=== PATIENT | male | born 1970 | race Caucasian/White ===

== ENCOUNTER 2025-08-30 11:37 | Outpatient (REF) | payer OTHER, SELFPAY ==
--- NOTE | ~2025-08-30 | XR_ITS ---
Exam: X-ray, bilateral knees.XR KNEE 3 VIEWS BILATERAL TECHNIQUE: Three views lower extremity joint, bilateral knees INDICATION: Sanjay knee pain COMPARISON: None available. FINDINGS: RIGHT KNEE: There is moderate narrowing of the medial joint space. There is faint amorphous calcific density visible in the medial and lateral joint lines. There are small tricompartmental marginal osteophytes, most pronounced along the medial patellofemoral joint. There is no joint effusion. LEFT KNEE: There is moderate narrowing of the medial joint space. There is faint amorphous calcific density visible in the lateral meniscus. There is also linear chondrocalcinosis involving patellar cartilage. There is no joint effusion. There are tricompartmental marginal osteophytes, most advanced in the patellofemoral joint. 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 Electronically signed by: Jim Brown MD 08/30/2025 12:09 PM EDT
== END 2025-08-30 11:38 | disposition home or self-care (01) ==
LOC: HO.HOSX 11:37
PROVIDERS: PCP Physician Assistant
DX: M17.0 Bilateral primary osteoarthritis of knee (principal)
CPT/HCPCS: 73562

== ENCOUNTER 2025-08-30 11:37 | Outpatient (AMB) | payer OTHER, SELFPAY ==
--- OUTSIDE RECORDS SUMMARY | 2025-03-12 09:30 | XMS_ITS ---
Author Organization [facility] [place] Address [address] [facility] [address] [place] [address] Care Team Providers Care Bead Worker Sewing Name Role Phone Rafy Courtney Unavailable [phone] REASON FOR VISIT New Patient Exam Encounters Encounter Location Date Provider Diagnosis [facility], [address] [address] 03/12/2025 Rafy Courtney Plan Of Treatment No Information Progress Notes * Rayray MOREJONDOB:[birth year] (55 yo Other)Acc No.[id number]:03/12/2025 Progress Notes Patient: Rayray Bowling Provider: Leon VYAS :1970 A ge:54 Y S ex:Unknown Date:03/12/2025 Phone: Address:[address] [place] [address] [place], [place] [address] [facility] [id number] Subjective: * Chief Complaints: * N ew Patient Exam * Ocular Surgical History: Objective: Vision Examination: * Electronic signature of Dhiraj Courtney PA-C on 08/30/2025 at 03:01 PM EDT Sign off status: Pending * Provider: Leon VYAS Date: 0 03/12/2025 Generated for Idalia molina/Aubrey/Orlinitting on: 1 03:01 PM EDT
--- OUTSIDE RECORDS SUMMARY | 2025-05-21 05:30 | XMS_ITS ---
Author Organization [facility] [place] Address [address] [facility] [address] [place] [address] Care Team Providers Care Noc Technician Name Role Phone Hoa Duron Unavailable [phone] Allergies No Known Allergies REASON FOR VISIT 1 month f/u-, right knee pain- did xray already-possible arthoartritis?, BP 2nd time right arm 165/96 Social History Section Notes: denies smoking alcohol-socially nynsggig-6-5 cups coffee daily Vital Signs Temperature 97.6 [...] 05/21/2025 Encounters Encounter Location Date Provider Diagnosis [facility], [address] [address] 05/21/2025 Hoa Duron Plan Of Treatment No Information History and Physical Notes * HPI (History [...] * Rayray MOREJONDOB:[birth year] (55 yo Other)Acc No.[id number]:05/21/2025 Progress Notes Patient: Rayray Bowling Provider: Nenita Duron :1970 A ge:55 Y S ex:Unknown Date:05/21/2025 Phone: Address:[address] [place] [address], [place], [phone] Subjective: * Chief Complaints: * 1 [...] providers Medical History Verified * Surgical History: infant-plorexdinosis hernia Surgical History verified. * Hospitalization/Major Diagno stic Procedure: Denies Past Hospitalization. * Family History: health care proxy-denies. * Social History: d enies smoking alcohol-socially komngztb-3-2 cups coffee daily. * Medications: N one * Allergies: N .K.D.A.yesAllergies Verified. Objective: * Vitals: B P:169/76mm Hg, HR:91/min, RR:20/min, Temp:97.6F, Oxygen sat %:97%, Ht: 67 in, Wt:195lbs, BMI:30.54Index, Wt-k.45 kg, Ht-cm: 170.18 cm, Body Surface Area: 2.04. Billing Information: * Procedure Codes: * Electronic signature of Dima Duron on 08/30/2025 at 03:01 PM EDT Sign off status: Pending * Provider: Nenita Duron Date: 0 05/21/2025 Generated for Idalia molina/Aubrey/Manny on: 1 03:01 PM EDT
--- NOTE | 2025-08-30 11:50 | MHC.OFFVIS ---
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 Per referring provider from [facility], patient complains of pain on the medial aspect of the right knee. He has tried using a soft brace, Ibuprofen PRN, and and Glucosamine QD without relief. Patient states his left knee has improved with the use of Glucosamine however, he continues having trouble with his right knee. He complains of clicking, locking, and giving away. He describes his pain as a grinding sensation. Patient is a retired [employer] currently working part-time at a [employer]. Allergies No Known Allergies Allergy (Verified 08/30/25 11:57) HPI HPI EMBEDDED FIRMWARE ENGINEER- Sanjay knee OA / ok per AA: Details: Rayray is a 55 year old male who presents today as a New Patient for evaluation of Bilateral Knee Pain. Per referring provider from [facility], patient complains of pain on the medial aspect of the right knee. He has tried using a soft brace, Ibuprofen PRN, and and Glucosamine QD without relief. Patient states his left knee has improved with the use of Glucosamine however, he continues having trouble with his right knee. He complains of clicking, locking, and giving away. He describes his pain as a grinding sensation. Patient is a retired [employer] currently working part-time at a [employer]. [facility] Medical History (Updated 09/14/25 @ 08:33 by ASAEL Sanchez) Essential hypertension, benign Social History (Updated 08/30/25 @ 12:01 by ROYN Archuleta) Alcohol intake: never Patient Tobacco Use Status: Never used Tobacco Current occupational status: employed Current occupation: retired [employer] currently working part-time at a [employer] Physical Exam Vital Signs: BMI result Body Mass Index 31.3 Extrem Other: Patient's bilateral knees normal to inspection No erythema, ecchymosis, edema noted No lacerations, abrasions, open areas No evidence of infection Patient reports mild tenderness to palpation of the medial joint line of bilateral knees No tenderness to palpation of lateral joint line, quad tendon, patellar tendon, or elsewhere on the bilateral knees Patient is able to flex the knee to approximately 100 degrees and extend fully and without difficulty Negative Tran's bilaterally No ligamentous laxity with varus and valgus testing noted Distal sensation intact Capillary refill brisk Results Reviewed Results Reviewed: X-rays obtained in the office today and independently reviewed by me, Amarjit Colon PA-C, demonstrate bilateral knee osteoarthritis. Assessment & Plan Assessment & Plan (1) Bilateral primary osteoarthritis of knee: Code(s): M17.0 - Bilateral primary osteoarthritis of knee Category: Medical Plan 1. Bilateral knee osteoarthritis Patient is educated about this condition Patient is educated about the typical recovery course At this time, patient states he is interested in injections, however he inquires about cost and the need for prior authorization for these injections Therefore, we will reach out to the patient's insurance company, determine what his cost we will be, and book him an appointment whenever he would like to pursue injections Patient understands this is amenable to this plan Orders: Orders XR Knee Sanjay 3V 08/30/25 M25.569 - Pain in unspecified knee Coding Level of Care Code New Pt Level 3 (47212) Diagnoses Bilateral primary osteoarthritis of knee M17.0
[2025-08-30 11:55] VITALS: BMI 31.3
--- OUTSIDE RECORDS SUMMARY | 2025-08-30 15:01 | XMS_ITS | Patient Health Record ---
Author Organization [facility] [place] Address [address] [facility] [address] [place] [address] Care Team Providers Care Bridge Worker Apprentice Name Role Phone KatherineRafy domingo Unavailable [phone] Hoa Duron Unavailable [phone] Allergies No Known Allergies Reason For Referral Reason Pt is a 55yo male w/ HTN and chronic B/L knee pain, R > L who would benefit from an Orthopedic referral as his knee pain has not improved. Please note the b/l knee x-ray below. Please evaluate and treat as indicated. Thank you for - 03/12/2025: B/L Knee x-rays note the following: Osteoarthritis B/L. Primary medial compartment of the femoral tibia joint space B/L resulting in mild varus deformity of both knees. There is also vacuum phenomenon in the medial menisci B/L indicative of degenerative changes. Diagnosis 1 Pain in right knee ( M25.561) Diagnosis 2 Pain in left knee (M 25.562) Referral Organization [facility] Referring Provider First Name Hoa Referring Provider Last Name Domi Referring Provider Special[facility] Referred Provider Specialty Orthopedic S urgery General Notes Hoa Duron 08/16 08:43:04 AM > Pt would prefer to go to [facility] Referral Priority Routine Medications Medication SIG (Take, Route, Frequency, Duration) Notes Start Date End Date Status amLODIPine Besylate 5 MG Tablet 1 tablet Orally Once a day; Duration: 90 days 08/09/2025 Active Glucosamine 500 MG Capsule 1 capsule wit h meals Orally daily 08/13/2025 Active Social History Section Notes: denies smoking alcohol-socially ujyarvxo-8-5 cups coffee daily denies smoking alcohol-socially vbnmrkxf-4-2 cups coffee daily Problems Problem Type SNOMED Code ICD Code Onset Dates Problem Status W/U Status Risk Notes Problem Pain of right knee region (finding) (336348518627044 ) Pain in right knee (M25.561) Active confirmed Problem Benign essential hypertension (5312943) Benign essential hypertension (I10) Active confirmed Problem Acute pain of left knee (M25.562) Active confirmed Vital Signs Heart Rate 85 /min 08/09/2025 Temperature 97.6 degrees Fahrenheit 05/21/2025 Respiratory Rate 19 /min 08/09/2025 Height-cm 170.18 cm 08/09/2025 Oximetry 97 % 08/09/2025 Blood pressure diastolic 90 mm Hg 08/09/2025 Weight-kg 90.27 kg 08/09/2025 Height 67 in 08/09/2025 Blood pressure systolic 155 mm Hg 08/09/2025 Weight 199 lbs 08/09/2025 BMI 31.16 kg/m2 08/09/2025 Encounters Encounter Location Date Provider Diagnosis [facility], [address] [address] 03/12/2025 Rafy Courtney [facility], [address] [place] [address] 05/21/2025 Hoa Domi [facility], [address] [address] 08/30/2025 Hoa Sagan [facility], [address] [address] 08/09/2025 Hoa Sagan Pain in right knee M25.561 ; Acute pain of left knee M25.562 and Benign essential hypertension I10 Assessments Encounter Date Diagnosis (ICD Code) Assessment Notes Treatment Notes Treatment Clinical Notes Section Notes 08/09/2025 Pain in right knee (ICD-10 - M25.561) Pt notes B/L knee pain, chronic, R > L. X-rays completed. -Continue Ibuprofen and Acetaminophen PRN -Orthopedic Referral, Pt would like to go to [facility] -F/up s/p Ortho appt 08/09/2025 Acute pain of left knee (ICD-10 - M25.562) Please note the above Right knee PLAN. 08/09/2025 Benign essential hypertension (ICD-10 - I10) BP noted to be increased, even w/ a manual BP. Pt has HTN. PLAN: -Start Amlodipine 5mg daily, increase if indicated -Pt encouraged to purchase a BP monitor -Pt encouraged to keep track of his BP results -Monitor BP at in-office appts 08/09/2025 Other -Continue to monitor all of the above Plan Of Treatment No Information Insurance Providers Payer Name Payer Address Payer Phone Subscriber Number Group Number Insured Name Patient Relationship to Insured Coverage Start Date Coverage End Date [facility] Insurance [address] [employer] Daily [id number] Rayray Armstrong Self - patient is the insured Medical (General) History Medical History History ICD Code B/L knee pain, chronic; elevated BP Surgical History Surgery Date(Month/Year) infant-plorexdinosis hernia
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
== END 2025-08-30 12:59 | disposition home or self-care (01) ==
LOC: HO.HOS 11:38
PROVIDERS: PCP Physician Assistant
DX: M17.0 Bilateral primary osteoarthritis of knee (principal)
CPT/HCPCS: 99203

== ENCOUNTER → 2025-08-30 11:48 | Outpatient (BNV) | payer OTHER, SELFPAY | PROVIDERS: PCP Physician Assistant; Visit Provider Radiology Diagnostic Radiology | DX: M17.0 Bilateral primary osteoarthritis of knee (principal) | CPT/HCPCS: 73562 ==

== ENCOUNTER 2025-09-14 13:45 | Outpatient (AMB) | payer OTHER, SELFPAY ==
--- OUTSIDE RECORDS SUMMARY | 2025-03-12 08:30 | XMS_ITS ---
Author Organization [facility] [place] Address [address] [facility] [address] [place] [address] Care Team Providers Care Forest Fire Control Officer Name Role Phone Rafy Courtney Unavailable [phone] REASON FOR VISIT New Patient Exam Encounters Encounter Location Date Provider Diagnosis [facility], [address] [place] [address] 03/12/2025 Rafy Courtney Plan Of Treatment Next Appt Details Provider Name:Hoa Duron, 09/24/2025 03:45:00 PM, [address] [facility], [address], [place], [address], [phone] Progress Notes * Rayray MOREJONDOB:[birth year] (55 yo Other)Acc No.[id number]:03/12/2025 Progress Notes Patient: Rayray Bowling Provider: Leon VYAS :1970 A ge:54 Y S ex:Unknown Date:03/12/2025 Phone: Address:[address] [place], [place] [id number] Subjective: * Chief Complaints: * N ew Patient Exam * Ocular Surgical History: Objective: Vision Examination: * Electronic signature of Dhiraj Courtney PA-C on 09/14/2025 at 03:22 PM EST Sign off status: Pending * Provider: Leon VYAS Date: 0 03/12/2025 Generated for Printi ng/Faxing/eTransmitting on: 1 11/14/2024 03:22 PM EST
--- OUTSIDE RECORDS SUMMARY | 2025-05-21 04:30 | XMS_ITS ---
Author Organization [facility] [place] Address [address] [facility] [address] [place] [address] Care Team Providers Care Cardiac Catheterization Technologist Name Role Phone Hoa Duron Unavailable [phone] Allergies No Known Allergies REASON FOR VISIT 1 month f/u-, right knee pain- did xray already-possible arthoartritis?, BP 2nd time right arm 165/96 Social History Section Notes: denies smoking alcohol-socially iogbrvps-3-2 cups coffee daily Vital Signs Temperature 97.6 degrees Fahrenheit 05/21/20 25 Blood pressure systolic 169 mm Hg 05/21/20 25 Blood pressure diastolic 76 mm Hg 025 Heart Rate 91 /min 05/21/2025 Respiratory Rate 20 /min 05/21/2025 Height 67 in 05/21/2025 Weight 195 lbs 05/21/2025 BMI 30.54 kg/m2 05/21/2025 Oximetry 97 % 05/21/2025 Height-cm 170.18 cm 05/21/2025 Weight-kg 88.45 kg 05/21/2025 Encounters Encounter Location Date Provider Diagnosis [facility], [address] [place] [address] 05/21/2025 Hoa Duron Plan Of Treatment Next Appt Details Provider Name:Hoa Duron, 09/24/2025 03:45:00 PM, [address] [facility], [address], [place], [address], [phone] History and Physical Notes * HPI (History of Present Illness) Category Sub-Category Detail Notes Category Not es Depression screening PHQ-9 Little inte rest or pleasure in doing things: Not at all Feeling down, depressed, or hopeless: No t at all Trouble falling or staying asleep, or sl eeping too much: Not at all Feeling tired or having little energy: N ot at all Poor appetite or overeating: Not at all Feeling bad about yourself o r that you are a failure, or have let yourself or your family down: Not at all Trouble concentrating on thi ngs, such as reading the newspaper or watching television: Not at all Moving or speaking so slowly that other people could have noticed; or the opposite, being so fidgety or restless that you have been moving around a lot more than usual: Not at all Thoughts that you would be b familia off or of hurting yourself in some way: Not at all Total Score: 0 Progress Notes * Rayray MOREJONDOB:[birth year] (55 yo Other)Acc No.[id number]:05/21/2025 Progress Notes Patient: Rayray Bowling Provider: Nenita Duron :1970 A ge:55 Y S ex:Unknown Date:05/21/2025 Phone: Address:[address] [place] [address], [phone] Subjective: * Chief Complaints: * 1 month f/u-Right knee pain- did xray already-possible arthoartritis?BP 2nd time right arm 165/96 * HPI: D epression screening: PHQ-9 L ittle interest or pleasure in doing things N ot at all, F eeling down, depressed, or hopeless N ot at all, T rouble falling or staying asleep, or sleeping too much N ot at all, F eeling tired or having little energy N ot at all, P oor appetite or overeating N ot at all, F eeling bad about yourself or that you are a failure, or have let yourself or your family down N ot at all, T rouble concentrating on things, such as reading the newspaper or watching television N ot at all, M oving or speaking so slowly that other people could have noticed; or the opposite, being so fidgety or restless that you have been moving around a lot more than usual N ot at all, T houghts that you would be better off or of hurting yourself in some way N ot at all, T otal Score 0 . * Medical History: No other providers Medical History Verified * Surgical History: -plorexdinosis infant hernia Surgical History verified. * Hospitalization/Major Diagno stic Procedure: Denies Past Hospitalization. * Family History: health care proxy-denies. * Social History: d enies smoking alcohol-socially vvvrpddb-5-9 cups coffee daily. * Medications: N one * Allergies: N .K.D.A.yesAllergies Verified. Objective: * Vitals: B P:169/76mm Hg, HR:91/min, RR:20/min, Temp:97.6F, Oxygen sat %:97%, Ht: 67 in, Wt:195lbs, BMI:30.54Index, Wt-k.45 kg, Ht-cm: 170.18 cm, Body Surface Area: 2.04. Billing Information: * Procedure Codes: * Electronic signature of Dima Duron on 09/14/2025 at 03:22 PM EST Sign off status: Pending * Provider: Nenita Duron Date: 0 05/21/2025 Generated for Idalia molina/Aubrey/Orlinitting on: 1 11/14/2024 03:22 PM EST
--- OUTSIDE RECORDS SUMMARY | 2025-08-30 10:00 | XMS_ITS ---
Author Organization [facility] [place] Address [address] [facility] [address] [place] [address] Care Team Providers Care Humanities And Languages Professor Name Role Phone Hoa Duron Unavailable [phone] REASON FOR VISIT 3 weeks BP FU Medications Medication SIG (Take, Route, Frequency, Duration) Notes Start Date End Date Status Glucosamine 500 MG Capsule 1 capsule wit h meals Orally daily 08/13/2025 Active amLODIPine Besylate 10 MG Tablet 1 tablet Orally Once a day; Duration: 90 days 08/09/2025 Active Encounters Encounter Location Date Provider Diagnosis [facility], [address] [place] [address] 08/30/2025 Hoa Duron Benign essential hypertension I10 Assessments Encounter Date Diagnosis (ICD Code) Assessment Notes Treatment Notes Treatment Clinical Notes Section Notes 08/30/2025 Benign essential hypertension (ICD-10 - I10) Plan Of Treatment Medication Medication Name Sig Start Date Stop Date Notes amLODIPine Besylate 10 MG Tablet 1 tablet Orally Once a day; Duration: 90 days 08/09/2025 Next Appt Details Provider Name:Hoa Duron, 09/24/2025 03:45:00 PM, [address] [facility] [address] [facility] [address], [place], [address], [phone] Progress Notes * Rayray MOREJONDOB:[birth year] (55 yo Other)Acc No.[id number]:08/30/2025 Patient: Rayray Bowling Provider: Nenita Duron :1970 A ge:55 Y S ex:Unknown Date:08/30/2025 Phone: Address:[address] [place] [address] [phone] Subjective: * Chief Complaints: * 3 weeks BP FU * Medications: T akingamLODIPine Besylate 5 MG Tablet 1 tablet Orally Once a day Glucosamine 500 MG Capsule 1 capsule with meals Orally daily Taking amLODIPine Besylate 5 MG Tablet 1 tablet Orally Once a day Taking Glucosamine 500 MG Capsule 1 capsule with meals Orally daily Assessment: * Assessment: 1. B enign essential hypertension - I10 Plan: * Treatment: Billing Information: * Procedure Codes: * Electronic signature of Dima Duron on 09/14/2025 at 03:22 PM EST Sign off status: Pending * Provider: Nenita Duron Date: Generated for Idalia molina/Aubrey/Manny on: 11/14/2024 03:22 PM EST
[2025-09-14 13:47] VITALS: BMI 31.3
--- NOTE | 2025-09-14 13:47 | A.OFFVIS_ITS ---
Vital Signs 09/14/25 13:47 Height 5 ft 7 in Weight 200 lb BMI 31.3 Intake Visit Reasons: Inj: Bilateral Knee Injection Intake Note: Rayray is a 55 year old male who presents today for Follow Up of his Bilateral Knee Osteoarthritis and a Right Knee Steroid Injection. Allergies No Known Allergies Allergy (Verified 09/14/25 13:48) HPI HPI Inj: Bilateral Knee Injection: Details: Rayray is a 55 year old male who presents today for Right Knee Steroid Injection. Patient reports he would still like to proceed with this injection at this time. No new diagnosis of diabetes since previous visit. No changes in symptoms. No other acute complaints or concerns at this time. 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 [employer] All systems reviewed & are unremarkable except as noted in HPI and below Physical Exam Vital Signs: BMI result Body Mass Index 31.3 Office Procedures Joint Inj/Aspir; Non-Pain Clin Joint Injection/Drain Prep: site was prepped using aseptic technique and injection warnings given Approach Used: anterolateral Procedure: The patient tolerated the procedure well, but had some pain with the injection and there was some relief with the local anesthesia Shoulders, Hips, Knees, Knee Large Joint Injection 75345: Right Knee Coding Procedure code (CPT) selection complete Assessment & Plan Assessment & Plan (1) Bilateral primary osteoarthritis of knee: Code(s): M17.0 - Bilateral primary osteoarthritis of knee Category: Medical Plan 1. Right knee osteoarthritis The risks and benefits of a steroid injection including but not limited to risk of damage to blood vessels, nerves, tendons, infection, skin bleaching, failure to improve symptoms, increased pain, and possible need for further injections or other intervention were discussed with the patient and the patient wishes to proceed with the steroid injection. Once consent was obtained, I aseptically prepped the area over the anterolateral joint line of the right knee. I then injected the anterolateral joint line with 40 mg dexamethasone and 8 mL of 1% lidocaine. The patient tolerated the procedure well with no complications. If the patient continues to experience symptoms over the following few weeks or months, they can make an appointment to return and discuss alternative treatment measures, such as physical therapy. Follow-up prn Coding Level of Care Code Procedure Only Diagnoses Bilateral primary osteoarthritis of knee M17.0 CPT Codes Shoulders, Hips, Knees, - Knee Large Joint Injection 00699: Right Knee ([id number])
--- OUTSIDE RECORDS SUMMARY | 2025-09-14 15:22 | XMS_ITS | Patient Health Record ---
Author Organization [facility] [place] Address [address] [place] [address] Care Team Providers Care Tableau Administrator Name Role Phone KatherineRafy domingo Unavailable [phone] Hoa Duron Unavailable [phone] Allergies No Known Allergies Reason For Referral [...] in left knee (M 25.562) Referral Organization [facility] Referring Provider First Name Hoa Referring Provider Last Name Domi Referring Provider Speciality Family [facility] Referred Provider Specialty Orthopedic S urgery General Notes Hoa Duron 08/16 08:43:04 AM > Pt would prefer to go to [facility] Referral Priority Routine Medications Medication SIG (Take, Route, Frequency, Duration) Notes Start Date End Date Status Glucosamine 500 MG Capsule 1 capsule wit h meals Orally daily 08/13/2025 Active amLODIPine Besylate 10 MG Tablet 1 tablet Orally Once a day; Duration: 90 days 08/09/2025 Active Social History Section Notes: denies smoking alcohol-socially veevbtzb-7-6 cups coffee daily denies smoking alcohol-socially doqdbfrs-9-1 cups coffee daily Problems Problem Type SNOMED Code ICD Code Onset Dates Problem Status W/U Status Risk Notes Problem Pain of right knee region (finding) (966260171664197 ) Pain in right knee (M25.561) Active confirmed Problem Benign essential hypertension (2944900) Benign essential hypertension (I10) Active confirmed Problem [...] Location Date Provider Diagnosis [facility], [address] [phone] 03/12/2025 Rafy Courtney [facility], [address] [place] [phone] 05/21/2025 Hoa Domi [facility], [address] [address] 08/30/2025 Hoa Sagan Benign essential hypertension I10 [facility], [address] [address] 08/09/2025 Hoa Sagan Pain in right knee [...] Referral, Pt would like to go to [facility]/up s/p Ortho appt 08/09/2025 Acute pain of left knee (ICD-10 - M25.562) Please note the above Right knee PLAN. 08/30/2025 Benign essential hypertension (ICD-10 - I10) 08/09/2025 Benign essential hypertension (ICD-10 - I10) BP noted to be increased, even w/ a manual BP. Pt has HTN. PLAN: -Start Amlodipine 5mg daily, increase if indicated -Pt encouraged to purchase a BP monitor -Pt encouraged to keep track of his BP results -Monitor BP at in-office appts 08/09/2025 Other -Continue to monitor all of the above Plan Of Treatment Next Appt Details Provider Name:Hoa Duron, 09/24/2025 03:45:00 PM, [address] [place] [address], [address], [place], [address], [id number] Insurance Providers Payer Name Payer Address Payer Phone Subscriber Number Group Number Insured Name Patient Relationship to Insured Coverage Start Date Coverage End Date [facility] Insurance [address] [place] [address] [id number] Rayray Armstrong Self - patient is the insured Medical (General) History Medical History History ICD Code B/L knee pain, chronic; elevated BP Surgical History Surgery Date(Month/Year) infant-plorexdinosis hernia
--- OUTSIDE RECORDS SUMMARY | 2025-09-14 15:23 | XMS_ITS | Clinical Summary ---
Author Organization [address] Address [address] [place] [phone] Phone Care Team Providers Care Drying Machine Operator Package Yarns Name Role Phone Rafy Courtney Primary Care Provider [phone] Surgical History Surgery Date Site/Laterality Comments OTHER [...] V28) DX:Pyloric stenosis, congeni tk; COMMENT: as with surgical repair GERD (gastroesophageal reflux disease) 03/27/2021 DX:GERD (gastroesophageal reflux disease) Family History Medical History Relation Name Comments CABG Father Coronary artery disease Father Heart attack Father Stroke Mother Stroke Sister Relation Name Status Comments Father NC age 68, form er smoker Maternal Grandfather [...] LAB CHEMISTRY METHOD 03/12/2025 4:54 PM EDT [facility] Triglycerides 183(H) 0 - 150 mg/dL LAB CHEMISTRY METHOD 03/12/2025 4:54 PM EDT [facility] HDL 27(L) >=40 mg/dL LAB CHEMISTRY METHOD 03/12/2025 4:54 PM EDT [facility] LDL Calculated 124(H) 0 - 100 mg/dL LAB CHEMISTRY METHOD 03/12/2025 4:54 PM EDT [facility] VLDL Cholesterol Landen 36.6 mg/dL LAB CHEMISTRY METHOD 03/12/2025 4:54 PM EDT [facility] Non HDL Chol. (LDL+VLDL) 161(H) <145 mg/dL LAB CHEMISTRY METHOD 03/12/2025 4:54 PM EDT [facility] Chol/HDL Ratio 7.0(H) 0.0 - 4.4 LAB CHEMISTRY METHOD 03/12/2025 4:54 PM EDT [facility] Blood Venous blood specimen / Unknown Venipuncture / Unknown 03/12/2025 3:27 PM EDT 03/12/2025 4:01 PM EDT us Rafy VYAS LAB BLOOD ORDERABLES Final Res ult [facility] [address] [place] [address], from Last 3 Months or Most Recently Relevant to Health Maintenance Insurance [facility] [place] [address] [facility] Care Teams Drying Machine Operator Package Yarns Relationship Specialty Start Date End Date Rafy Courtney PA [address] [place] [id number] PCP - General Primary Care 03/12/25
== END 2025-09-14 14:12 | disposition home or self-care (01) ==
LOC: HO.HOS 13:46
PROVIDERS: PCP Physician Assistant
DX: M17.0 Bilateral primary osteoarthritis of knee (principal)
CPT/HCPCS: 20610

== ENCOUNTER → 2025-09-14 13:45 | Outpatient (BNVA) | payer OTHER, SELFPAY | PROVIDERS: PCP Physician Assistant | DX: M17.11 Unilateral primary osteoarthritis, right knee (principal) | CPT/HCPCS: 20610; J0665; J1100; J2003 ==